=== PATIENT | male | born 1960 | race Two or more races ===

== ENCOUNTER 2017-03-02 13:38 | Emergency (ER) | payer MEDICAID ==
[~2017-03-02] VITALS: Ht 172.7 cm; Wt 113.4 kg
[~2017-03-02 13:38] MED LIST: ATEN50TA PO; BIMA2.5D5 EACHEYE; CLOP75TA2 PO; DORZ10DR13 EACHEYE; FLUT1DIS29 IH; GABA-532 PO; INSU100V7 SQ; LISI-603 PO; Metformin Hcl PO; RANI150T8 PO; SITA100T PO
[2017-03-02] MEDS: LORAZEPAM 0.5 MG TABLET PO ONE (14:06)
[2017-03-02] MEDS ORDERED: LORAZEPAM 1 MG TABLET ONE (14:16)
[2017-03-02 14:35] LABS: BASOPHILS # (AUTO) 0.1 K/uL (0.0-8.0); BASOPHILS % (AUTO) 0.6 % (0.0-2.0); EOSINOPHILS # (AUTO) 0.1 K/uL (0.0-0.7); EOSINOPHILS % (AUTO) 1.2 % (0.0-7.0); HEMATOCRIT 41.2 % (40-50); HEMOGLOBIN 13.5 G/DL (14.0-18.0); LYMPHOCYTES # (AUTO) 1.9 K/UL (0.8-4.8); LYMPHOCYTES % (AUTO) 22.1 % (20.5-51.5); MEAN CORPUSCULAR HEMOGLOBIN 26.8 UUG (27.0-31.0); MEAN CORPUSCULAR HGB CONC 33 g/dL (32.0-37.0); MEAN CORPUSCULAR VOLUME 81.5 FL (82.0-92.0); MONOCYTES # (AUTO) 0.6 K/UL (0.1-1.30); MONOCYTES % (AUTO) 6.7 % (0.0-11.0); NEUTROPHILS # (AUTO) 5.8 K/UL (1.8-8.9); NEUTROPHILS % (AUTO) 69.4 % (38.5-71.5); PLATELET COUNT (AUTO) 246 K/UL (150-450); RED BLOOD CELL COUNT(AUTO) 5.05 MIL/UL (4.7-6.1); WHITE BLOOD COUNT (AUTO) 8.5 K/UL (4.0-11.2)
[2017-03-02 14:37] LABS: CALCIUM 8.8 mg/dL (8.5-10.1); CREATININE 0.9 mg/dL (0.6-1.3); POTASSIUM 4.5 mmol/L (3.5-5.1)
[2017-03-02 14:42] LABS: ALBUMIN 3.6 g/dL (3.4-5.0); BILIRUBIN,DIRECT 0.1 mg/dL (0.0-0.2); BILIRUBIN,TOTAL 0.3 mg/dL (0.2-1.0); TOTAL PROTEIN, SERUM 7.3 g/dL (6.4-8.2)
[2017-03-02] MEDS: HYDROCODONE/APAP 10-325 MG TABLET PO ONE (15:04)
[2017-03-02] MEDS ORDERED: HYDROCODONE/APAP 10-325 MG TABLET ONE (15:14)
--- NOTE | 2017-03-02 16:30 | NUR ---
HOSPITAL SANDWICH AND JUICE PROVIDED PER PT REQUEST
--- NOTE | 2017-03-02 16:39 | NUR ---
Patient discharged to home in stable conditon. Written and verbal after care instructions given. Patient verbalizes understanding of instructions.PT LEFT WITH TAXI AND VOUCHER.
[2017-03-02 16:40] VITALS: BP 121/79
== END 2017-03-02 16:42 | disposition home or self-care (01) ==
LOC: ER 13:42
DX: F41.9 Anxiety disorder, unspecified (principal); M79.672 Pain in left foot; M79.671 Pain in right foot; I25.10 Atherosclerotic heart disease of native coronary artery without angina pectoris; E11.9 Type 2 diabetes mellitus without complications; J44.9 Chronic obstructive pulmonary disease, unspecified; F10.20 Alcohol dependence, uncomplicated; F17.200 Nicotine dependence, unspecified, uncomplicated; Z79.4 Long term (current) use of insulin; Z95.818 Presence of other cardiac implants and grafts
CPT/HCPCS: 36415; 70030-TC; 71010; 73630; 83690; 85025; 93005; A4663

== ENCOUNTER 2017-03-11 18:39 | Emergency (ER) | payer MEDICAID ==
[~2017-03-11] VITALS: Ht 167.6 cm; Wt 95.3 kg
[2017-03-11] MEDS ORDERED: ONDANSETRON ODT 4 MG TAB.RAPDIS SL ONE (19:00)
[2017-03-11] MEDS ORDERED: HYDROCODONE/APAP 10-325 MG TABLET PO ONE (19:00)
[2017-03-11] MEDS ORDERED: HYDROCODONE/APAP 10-325 MG TABLET ONE (19:20)
[2017-03-11] MEDS ORDERED: ONDANSETRON ODT 4 MG TAB.RAPDIS ONE (19:20)
[2017-03-11 19:23] VITALS: BP 135/77
--- NOTE | 2017-03-11 19:25 | NUR ---
Patient discharged to home in stable conditon. Written and verbal after care instructions given. Patient verbalizes understanding of instructions. Ambulated from ER with stable gait. Patient awaiting taxi arrival in waiting area. Taxi voucher provided to patient from nursing office. All belongings with patient.
== END 2017-03-11 19:26 | disposition home or self-care (01) ==
LOC: ER 18:40
DX: M25.572 Pain in left ankle and joints of left foot (principal); G89.29 Other chronic pain; F41.9 Anxiety disorder, unspecified; E11.9 Type 2 diabetes mellitus without complications; I10 Essential (primary) hypertension; K21.9 Gastro-esophageal reflux disease without esophagitis; J44.9 Chronic obstructive pulmonary disease, unspecified; I25.10 Atherosclerotic heart disease of native coronary artery without angina pectoris; F10.20 Alcohol dependence, uncomplicated; F17.200 Nicotine dependence, unspecified, uncomplicated; E66.9 Obesity, unspecified; Z79.4 Long term (current) use of insulin
CPT/HCPCS: A4663; Q0162

== ENCOUNTER 2017-12-12 17:02 | Emergency (ER) | payer MEDICAID ==
[~2017-12-12] VITALS: Ht 172.7 cm; Wt 85.7 kg
[~2017-12-12 17:02] MED LIST changes: +CLOP75TA15 PO; -CLOP75TA2 PO
[2017-12-12] MEDS: MORPHINE SULFATE 2 MG/1 ML DISP.SYRIN IV ONE (17:26)
[2017-12-12] MEDS: ONDANSETRON 4 MG/2 ML VIAL IV ONE (17:26)
--- NOTE | 2017-12-12 17:26 | NUR ---
Per animal care provider, Pt's family requested for pt not to have any narcotic/sedetives.
[2017-12-12 17:33] LABS: BASOPHILS # (AUTO) 0.1 K/uL (0.0-8.0); BASOPHILS % (AUTO) 0.8 % (0.0-2.0); EOSINOPHILS # (AUTO) 0.1 K/uL (0.0-0.7); EOSINOPHILS % (AUTO) 1.7 % (0.0-7.0); HEMATOCRIT 35.4 % (36.7-47.1); HEMOGLOBIN 11.9 g/dL (12.5-16.3); LYMPHOCYTES % (AUTO) 26.2 % (20.5-51.5); MEAN CORPUSCULAR HEMOGLOBIN 29.2 uug (23.8-33.4); MEAN CORPUSCULAR HGB CONC 34 g/dL (32.5-36.3); MEAN CORPUSCULAR VOLUME 86.5 fL (73.0-96.2); MONOCYTES # (AUTO) 0.7 K/uL (2.0-10.0); NEUTROPHILS # (AUTO) 4.8 K/uL (1.8-8.9); NEUTROPHILS % (AUTO) 62.3 % (38.5-71.5); PLATELET COUNT (AUTO) 253 K/uL (152-348); RED BLOOD CELL COUNT(AUTO) 4.09 MIL/uL (4.06-5.63); WHITE BLOOD COUNT (AUTO) 7.7 K/uL (3.6-10.2)
--- NOTE | 2017-12-12 17:40 | NUR ---
Pt out of ER for CT.
[2017-12-12] MEDS ORDERED: OMEP20TA5 PO (17:41)
[2017-12-12] MEDS ORDERED: AMIT25TA9 PO (17:41)
[2017-12-12] MEDS ORDERED: ONDA4TAB11 PO (17:41)
[2017-12-12] MEDS ORDERED: ACET325T53 PO (17:41)
[2017-12-12] MEDS ORDERED: SENN-167 PO (17:41)
[2017-12-12] MEDS ORDERED: TRAM50TA2 PO (17:41)
[2017-12-12] MEDS ORDERED: ASPI81TA31 PO (17:41)
[2017-12-12] MEDS ORDERED: IBUP-1953 PO (17:41)
[2017-12-12] MEDS ORDERED: ACET325C PO (17:41)
[2017-12-12 17:43] LABS: CREATININE 1.1 mg/dL (0.6-1.3); POTASSIUM 4.1 mmol/L (3.5-5.1)
--- NOTE | 2017-12-12 17:45 | NUR ---
Pt's residential child care counselor Soha left and provided cell # [phone].
[2017-12-12 17:48] LABS: BILIRUBIN,DIRECT 0.2 mg/dL (0.0-0.2); BILIRUBIN,TOTAL 0.6 mg/dL (0.2-1.0); TOTAL PROTEIN, SERUM 7.6 g/dL (6.4-8.2)
--- NOTE | 2017-12-12 17:52 | NUR ---
Pt not cooperative during Ct. I had to go to Ct and hold Pt's BLE for emergency medical technician/driver to be able to complete Ct scanning.
--- NOTE | 2017-12-12 20:00 | NUR ---
Patient discharged to home in stable conditon. Written and verbal after care instructions given. Patient verbalizes understanding of instructions. Pt's caregiver Soha arrived to car pick up driver patient via private vehicle via wheelchair, all belongings taken, VSS, no acute signs of distress.
[2017-12-12 20:45] VITALS: BP 133/73
== END 2017-12-12 20:00 | disposition home or self-care (01) ==
LOC: ER 17:04
DX: R10.9 Unspecified abdominal pain (principal); I10 Essential (primary) hypertension; J44.9 Chronic obstructive pulmonary disease, unspecified; K21.9 Gastro-esophageal reflux disease without esophagitis; F17.210 Nicotine dependence, cigarettes, uncomplicated; Z86.73 Personal history of transient ischemic attack (TIA), and cerebral infarction without residual deficits; Z79.82 Long term (current) use of aspirin; Z79.01 Long term (current) use of anticoagulants; Z79.4 Long term (current) use of insulin; Z79.51 Long term (current) use of inhaled steroids; Z79.899 Other long term (current) drug therapy; Z79.84 Long term (current) use of oral hypoglycemic drugs
CPT/HCPCS: 36415; 70450; 83690; 85025; A4663

== ENCOUNTER 2017-12-15 22:33 | Emergency (ER) | payer MEDICAID ==
[~2017-12-15] VITALS: Ht 172.7 cm; Wt 85.7 kg
[~2017-12-15 22:33] MED LIST changes: +ACET325C PO; +ACET325T53 PO; +AMIT25TA9 PO; +ASPI81TA31 PO; -ATEN50TA PO; -BIMA2.5D5 EACHEYE; -DORZ10DR13 EACHEYE; -FLUT1DIS29 IH; +IBUP-1953 PO; -INSU100V7 SQ; -Metformin Hcl PO; +OMEP20TA5 PO; +ONDA4TAB11 PO; -RANI150T8 PO; +SENN-167 PO; -SITA100T PO; +TRAM50TA2 PO
--- NOTE | 2017-12-16 00:54 | NUR ---
PT IN BED. UA HAS BEEN ORDER. WATER HAS BEEN OFFERED. HAVE MADE SEVERAL ATTEMPT TO GET URINE SAMPLE. HOWEVER, ALL ATTEMPTS HAVE FAILED TO THIS POINT. WILL OFFER MORE WATER AND CONTINUE TO MONITOR.
--- NOTE | 2017-12-16 01:15 | NUR ---
TOBIN CATHETER ORDER, HOWEVER WAS REFUSED BY PT. MD GILLESPIE NOTIFIED.
[2017-12-16] MEDS ORDERED: KETOROLAC TROMETHAMINE 60 MG INJ IM ONE ×2 (01:29→01:30)
--- NOTE | 2017-12-16 03:15 | NUR ---
PT IN BED, BUT READY FOR DC. CALLED DAUGHTER, SUZI. SUZI SAYS SHE WILL BE HERE IN 30 MINS TO CONSTRUCTION ADMINISTRATIVE ASSISTANT PT.
--- NOTE | 2017-12-16 04:20 | NUR ---
AT THE REQUEST OF PATIENT, THE PATIENT WAS ASSISTED TO THE WAITING ROOM TO TAKE FOR DAUGHTER TO ELECTRICAL ACCESSORIES ASSEMBLER.
--- NOTE | 2017-12-16 04:21 | NUR ---
DAUGHTER CALLED AGAIN TO INFORM THAT PT IS READY FOR COUNTER CLERK. DAUGHTER SAYS THAT SHE IS "ON THE WAY."
--- NOTE | 2017-12-16 04:45 | NUR ---
DAUGHTER HERE TO MANUFACTURING SCHEDULER PATIENT.
--- NOTE | 2017-12-16 04:52 | NUR ---
Patient discharged to home in stable conditon. Written and verbal after care instructions given. Patient verbalizes understanding of instructions. Patient able to ambulate with the assistance of a cane. Patient waited in ED waiting area for daughter to orange picker. Patient left with all of his belongings.
[2017-12-16 04:54] VITALS: BP 135/73
== END 2017-12-16 04:45 | disposition home or self-care (01) ==
LOC: ER 22:34
DX: G89.29 Other chronic pain (principal); R10.9 Unspecified abdominal pain; I25.10 Atherosclerotic heart disease of native coronary artery without angina pectoris; J44.9 Chronic obstructive pulmonary disease, unspecified; K21.9 Gastro-esophageal reflux disease without esophagitis; E11.9 Type 2 diabetes mellitus without complications; I10 Essential (primary) hypertension; Z86.73 Personal history of transient ischemic attack (TIA), and cerebral infarction without residual deficits; Z79.82 Long term (current) use of aspirin; Z79.4 Long term (current) use of insulin; Z79.1 Long term (current) use of non-steroidal anti-inflammatories (NSAID); Z79.891 Long term (current) use of opiate analgesic; Z79.51 Long term (current) use of inhaled steroids; Z79.899 Other long term (current) drug therapy
CPT/HCPCS: A4663; J1885